=== PATIENT | female | born 1965 ===

== ENCOUNTER 2020-01-21 13:53 | Outpatient (REF) | payer BC, SELFPAY ==
[2020-01-21 14:15] LABS: Potassium 5.4 mmol/L (3.5-5.1)
== END 2020-01-21 14:13 ==
LOC: LBN 13:53
PROVIDERS: PCP Internal Medicine Nephrology; Visit Provider Internal Medicine Nephrology
DX: E87.5 Hyperkalemia (principal)
CPT/HCPCS: 84132